=== PATIENT | male | born 1965 | race Caucasian/White ===

== ENCOUNTER 2024-02-23 22:23 | Inpatient (IN) | payer MEDICAID, OTHER ==
[~2024-02-23] VITALS: Ht 185.4 cm; Wt 73.3 kg
[2024-02-23 23:13] LABS: Hematocrit 45.7 % (41.0-53.0); Hemoglobin 13.8 g/dL (13.5-17.5); Mean Corpuscular Hemoglobin 29.3 pg (28.0-32.0); Mean Corpuscular Hgb Conc. 30.2 g/dL (32.0-36.0); Mean Corpuscular Volume 96.9 fL (80.0-100.0); Red Blood Cells 4.72 10^6/uL (4.5-5.90); Red Cell Distribution Width 16.3 % (11.8-14.3)
[2024-02-23 23:21] LABS: Alanine Aminotransferase 33 U/L (7-40); Alkaline Phosphatase 223 U/L (46-116); Anion Gap 21.00001 (5-15); Aspartate Aminotransferase 34 U/L (13-40); BUN/Creatinine Ratio 25.4 (10.0-20.0); Bilirubin, Total < 0.2 mg/dL (0.2-1.0); Blood Urea Nitrogen 44 mg/dL (9-23); Calcium 9.9 mg/dL (8.7-10.4); Chloride 97 mmol/L (98-107); Potassium 3.8 mmol/L (3.5-5.1); Sodium 128 mmol/L (136-145); Total Protein 7.5 g/dL (5.7-8.2)
[2024-02-23 23:22] LABS: White Blood Cell 62.2 10^3/uL (4.4-10.8)
[2024-02-23 23:23] LABS: Basophils % (manual) 0 (0.0-2.0); Blast Cells 0; Eosinophils % (manual) 0 (0-7); Metamyelocytes % 0; Myelocytes % 0; Promyelocytes % 0; Reactive Lymphocytes 0
[2024-02-23 23:26] LABS: Carbon Dioxide < 10 mmol/L (20-30); Glucose 688 mg/dL (74-106); Lactic Acid w/Reflex 2.1 mmol/L (0.4-2.0)
[2024-02-23] MEDS ORDERED: DEXTROSE (50%) 50ML SYRG IV PRN (23:30)
[2024-02-23] MEDS: SODIUM CHLORIDE 0.9% 1,000 ML IV ONE ×2 (23:41)
[2024-02-23] MEDS: CLINDAMYCIN 900MG IV 50 ML IV ONE (23:41)
[2024-02-24] VITALS (13 sets, daily range): BP systolic 96–117; BP diastolic 52–63; PULSE 76–100; RESP 16–29; TEMP 99.3–99.5; O2SAT 98–100
[2024-02-24] MEDS: ACCU-CHEK COMFORT CURVE STRIP VI SCH
[2024-02-24 00:01] LABS: Band Neutrophils % (manual) 17; Lymphocytes % (manual) 6 (10.0-50.0); Monocytes % (manual) 5 (0-12); Platelet Estimate Adequate
[2024-02-24] MEDS: PIPERACILLIN-TAZO 4.5GM 100 ML IV ONE (00:44)
[2024-02-24] MEDS: ACCU-CHEK COMFORT CURVE STRIP VI ONE (00:52)
[2024-02-24] MEDS: INSULIN DRIP 100 UNIT/100ML 100 ML IV SCH (00:59)
[2024-02-24] MEDS: INSULIN LANTUS (GLARGINE) 1 /0.01ml (100units/ml) SC ONE (01:31)
[2024-02-24 04:10] LABS: Amphetamine Screen, Urine Neg (NEGATIVE); Barbiturate Scree,Urine Neg (NEGATIVE); Benzodiazephine Screen, Urine Neg (NEGATIVE); Cannabinoid Screen, Urine Neg (NEGATIVE); Cocaine Screen, Urine Neg (NEGATIVE); Opiate Scree,Urine Neg (NEGATIVE); Phencyclidine Screen, Urine Neg (NEGATIVE)
[2024-02-24] MEDS ORDERED: VANCOMYCIN PER PHARMACY 0 MG IV SCH (04:15)
[2024-02-24] MEDS ORDERED: NITROGLYCERIN 0.4 MG SL TAB SL PRN (04:15)
[2024-02-24] MEDS ORDERED: PAMIDRONATE DISODIUM 90 MG in SOD CHL 0.45% 1,000 ML IV ONE (04:15)
[2024-02-24] MEDS ORDERED: MORPHINE SULFATE INJ 2 MG/ml SYRG IV PRN (04:15)
[2024-02-24 04:22] LABS: Urine Bacteria FEW /hpf (None Seen); Urine Blood 3+ /uL (Negative); Urine Clarity Clear (Clear); Urine Color Light-Yellow (Yellow); Urine Mucus FEW (None Seen); Urine Protein, UAD 1+ (Negative); Urine Urobilinogen Normal (Negative); Urine WBC 2 /hpf (0 - 3)
[2024-02-24] MEDS: VANCOMYCIN 1GM/200ML 200 ML IV ONE ×2 (04:41→05:32)
[2024-02-24 05:42] LABS: Chloride 104 mmol/L (98-107); Potassium 3.1 mmol/L (3.5-5.1); Sodium 137 mmol/L (136-145)
[2024-02-24 05:43] LABS: Anion Gap 23.00001 (5-15); Calcium 9.2 mg/dL (8.7-10.4)
[2024-02-24 05:48] LABS: BUN/Creatinine Ratio 38.9 (10.0-20.0)
[2024-02-24 05:52] LABS: Blood Urea Nitrogen 61 mg/dL (9-23); Glucose 345 mg/dL (74-106)
[2024-02-24 05:53] LABS: Carbon Dioxide < 10 mmol/L (20-30)
[2024-02-24] MEDS: SODIUM BICARB 50mEq/50ml Vial 100 ML in SOD CHL 0.45% 1,000 ML IV ONE (06:17)
[2024-02-24] MEDS: SODIUM BICARB 8.4% 50Meq/50ml SYR Vial IV ONE ×2 (06:19→20:31)
[2024-02-24] MEDS: SODIUM BICARB 50mEq/50ml Vial 100 ML in SOD CHL 0.45% 1,000 ML IV SCH ×2 (07:25→12:19)
[2024-02-24] MEDS: PIPERACILLIN-TAZOB 3.375GM 100 ML IV SCH (07:30)
[2024-02-24 08:37] LABS: Base Excess -13.1 mmol/L (-2.0-2.0)
[2024-02-24] MEDS: INSULIN LANTUS (GLARGINE) 1 /0.01ml (100units/ml) SC SCH (10:00)
[2024-02-24] MEDS: POTASSIUM CHLORIDE 40 MEQ, LIDOCAINE 1% (LOCAL ANESTH.) 4 ML in SODIUM CHL 0.9% 250 ML IV ONE (11:15)
[2024-02-24 11:25] LABS: INR 1.32 (0.9-1.15); Prothrombin Time 13.6 sec (9.3-11.8)
[2024-02-24 11:47] LABS: Anion Gap 14 (5-15); Carbon Dioxide 12 mmol/L (20-30); Chloride 113 mmol/L (98-107); Potassium 2.9 mmol/L (3.5-5.1); Sodium 139 mmol/L (136-145)
[2024-02-24 11:53] LABS: BUN/Creatinine Ratio 34.4 (10.0-20.0)
[2024-02-24 12:03] LABS: Blood Urea Nitrogen 45 mg/dL (9-23); Glucose 178 mg/dL (74-106)
[2024-02-24] MEDS: ONDANSETRON HCL 4 MG/2 ML VIAL IV PRN (12:27)
[2024-02-24] MEDS: MORPHINE SULFATE INJ 2 MG/ml SYRG IV PRN (12:28)
[2024-02-24] MEDS: MEROPENEM 1GM IVPB 50 ML IV SCH (14:29)
[2024-02-24] MEDS: CLINDAMYCIN 600MG IV 50 ML IV SCH (14:29)
[2024-02-24] MEDS: SODIUM BICARB 8.4% 50Meq/50ml SYR INJ ONE (14:50)
[2024-02-24] MEDS: SOD CHL 0.45% 1,000 ML IV SCH (15:15)
[2024-02-24] MEDS ORDERED: MIDAZOLAM DRIP 50 mg/50mL 50 ML IV SCH (15:45)
[2024-02-24] MEDS: LIDOCAINE 1% (LOCAL ANESTH.) PF 5ml SDV ID ONE (16:00)
[2024-02-24] MEDS: ETOMIDATE (2MG/ML) 20ML VIAL IV ONE (16:24)
[2024-02-24] MEDS: ROCURONIUM 10MG/ML 10ML VIAL IV ONE (16:28)
[2024-02-24] MEDS: VANCOMYCIN 1GM/200ML 200 ML IV SCH (17:00)
[2024-02-24] MEDS: MIDAZOLAM DRIP 50 mg/50mL 50 ML IV SCH (17:05)
[2024-02-24 17:12] LABS: Base Excess -10.7 mmol/L (-2.0-2.0)
[2024-02-24] MEDS: VASOPRESSIN 20 UNITS in SODIUM CHL 0.9% 99 ML IV SCH (19:42)
[2024-02-24] MEDS: NOREPINEPHRINE 8 MG/250ML KIT 250 ML IV SCH (19:42)
[2024-02-24] MEDS: fentaNYL Drip 2500mCg/250mlNS 250 ML IV SCH (19:42)
[2024-02-24 20:12] LABS: Chloride 116 mmol/L (98-107); Potassium 3.3 mmol/L (3.5-5.1); Sodium 142 mmol/L (136-145)
[2024-02-24 20:15] LABS: Anion Gap 10 (5-15); Calcium 8.2 mg/dL (8.5-10.1); Carbon Dioxide 16 mmol/L (20-30)
[2024-02-24 20:20] LABS: BUN/Creatinine Ratio 35.2 (10.0-20.0); Blood Urea Nitrogen 44 mg/dL (9-23); Glucose 220 mg/dL (74-106)
[2024-02-24] MEDS ORDERED: DEXTROSE (50%) 50ML SYRG IV PRN (21:15)
[2024-02-24] MEDS: POTASSIUM CHL 20MEQ/100ML 100 ML IV ONE (21:42)
[2024-02-24] MEDS: SOD CHL 0.45% WITH 20MEQ KCL 1,000 ML IV SCH (21:47)
[2024-02-24] MEDS: SODIUM CHLOR 0.9% PF (SALINE LOCK) 10ML VIAL/SYR IV SCH (22:25)
[2024-02-24 22:37] LABS: Base Excess -6.3 mmol/L (-2.0-2.0)
[2024-02-25] VITALS (84 sets, daily range): BP systolic 86–114; BP diastolic 30–69; PULSE 80–101; RESP 16–35; TEMP 98.1–100.6; O2SAT 93–100
[2024-02-25] MEDS: ACCU-CHEK COMFORT CURVE STRIP VI SCH
[2024-02-25] MEDS: InsuLIN REG 1unit/0.01ml Soln (100units/ml) SC SCH (00:03)
[2024-02-25 03:56] LABS: Mean Corpuscular Hgb Conc. 32.9 g/dL (32.0-36.0)
[2024-02-25 03:59] LABS: Hematocrit 35.6 % (41.0-53.0); Hemoglobin 11.7 g/dL (13.5-17.5); Mean Corpuscular Volume 88.3 fL (80.0-100.0); Red Blood Cells 4.03 10^6/uL (4.5-5.90); Red Cell Distribution Width 15.1 % (11.8-14.3)
[2024-02-25 04:10] LABS: INR 1.34 (0.9-1.15); Partial Thromboplastin Time 28.4 SEC (24.5-34.5); Prothrombin Time 13.8 sec (9.3-11.8)
[2024-02-25 04:13] LABS: Basophils % (manual) 0 (0.0-2.0); Blast Cells 0; Eosinophils % (manual) 0 (0-7); Metamyelocytes % 0; Myelocytes % 0; Promyelocytes % 0; Reactive Lymphocytes 0; White Blood Cell 31.4 10^3/uL (4.4-10.8)
[2024-02-25 04:19] LABS: Alanine Aminotransferase 34 U/L (7-40); Albumin 2.4 g/dL (3.2-4.8); Alkaline Phosphatase 163 U/L (46-116); Anion Gap 10 (5-15); Aspartate Aminotransferase 39 U/L (13-40); BUN/Creatinine Ratio 37.6 (10.0-20.0); Bilirubin, Total 0.2 mg/dL (0.2-1.0); Blood Urea Nitrogen 47 mg/dL (9-23); Calcium 8.5 mg/dL (8.7-10.4); Carbon Dioxide 18 mmol/L (20-30); Chloride 113 mmol/L (98-107); Glucose 263 mg/dL (74-106); Potassium 3.3 mmol/L (3.5-5.1); Sodium 141 mmol/L (136-145); Total Protein 6.2 g/dL (5.7-8.2)
[2024-02-25 04:47] LABS: Band Neutrophils % (manual) 21; Lymphocytes % (manual) 4 (10.0-50.0); Monocytes % (manual) 2 (0-12)
[2024-02-25 04:48] LABS: Platelet Estimate Adequate
[2024-02-25] MEDS: POTASSIUM EFFERVESENT TAB 25 MEQ GT ONE (05:33)
[2024-02-25] MEDS: LIDOCAINE W/ EPINEPHRINE 1% 20ML VIAL ONE (06:54)
[2024-02-25] MEDS: BUPIVACAINE 0.25% INJ 50ML VIAL ONE (06:55)
[2024-02-25] MEDS: POVIDONE IODINE 10 % TOPICAL OINT 30GM TOP ONE (06:58)
[2024-02-25] MEDS ORDERED: HYDROmorphone HCL 2 MG/ML VL/or syr ONE (07:19)
[2024-02-25] MEDS ORDERED: KETAMINE 50mg/ML 1ml syringe ONE ×2 (07:19→08:46)
[2024-02-25] MEDS ORDERED: PHENYLEPHRINE HCL 10 MG/ML VL ONE (07:19)
[2024-02-25 07:35] LABS: Base Excess -8.9 mmol/L (-2.0-2.0)
[2024-02-25 11:39] LABS: Basophils # (auto) 0 10 ^3/uL (0-0.2); Basophils % (auto) 0.2 % (0.0-2.0); Eosinophils # (auto) 0 10 ^3/uL (0-0.8); Hemoglobin 10.2 g/dL (13.5-17.5); Lymphocytes % (auto) 4.2 % (10.0-50.0); Mean Corpuscular Hemoglobin 28.6 pg (28.0-32.0); Mean Corpuscular Hgb Conc. 31.9 g/dL (32.0-36.0); Mean Corpuscular Volume 89.6 fL (80.0-100.0); Monocytes # (auto) 0.8 10 ^3/uL (0-1.3); Monocytes % (auto) 3.2 % (0.0-12.0); Neutrophils # (auto) 22.5 10 ^3/uL (1.6-8.6); Neutrophils % (auto) 92.4 % (37.0-80.0); Nucleated Red Blood Cells % 0.1 %; Red Blood Cells 3.58 10^6/uL (4.5-5.90); Red Cell Distribution Width 14.6 % (11.8-14.3); White Blood Cell 24.4 10^3/uL (4.4-10.8)
[2024-02-25 11:42] LABS: Chloride 116 mmol/L (98-107); Potassium 3.6 mmol/L (3.5-5.1); Sodium 142 mmol/L (136-145)
[2024-02-25 11:43] LABS: Anion Gap 9 (5-15); Carbon Dioxide 17 mmol/L (20-30)
[2024-02-25 11:44] LABS: Calcium 7.8 mg/dL (8.7-10.4)
[2024-02-25 11:48] LABS: BUN/Creatinine Ratio 34.5 (10.0-20.0); Blood Urea Nitrogen 39 mg/dL (9-23); Glucose 284 mg/dL (74-106)
[2024-02-25 11:49] LABS: Magnesium 2.3 mg/dL (1.6-2.6)
[2024-02-25 11:51] LABS: Phosphorus 2.7 mg/dL (2.4-5.1)
[2024-02-25] MEDS: MIDAZOLAM DRIP 50 mg/50mL 50 ML IV SCH (13:20)
[2024-02-25] MEDS: VANCOMYCIN 1GM/200ML 200 ML IV SCH (20:50)
[2024-02-25 21:17] LABS: Triglycerides 96 mg/dL (< 150)
[2024-02-25 21:18] LABS: LDL Cholesterol 28 mg/dL (< 100)
[2024-02-25 21:19] LABS: Cholesterol 56 mg/dL (< 200); HDL Cholesterol 10 mg/dL (40-59)
[2024-02-25] MEDS: INSULIN LANTUS (GLARGINE) 1 /0.01ml (100units/ml) SC SCH (22:18)
[2024-02-25] MEDS: ATORVASTATIN 20 MG TAB PO SCH (22:19)
[2024-02-26] VITALS (106 sets, daily range): BP systolic 83–141; BP diastolic 44–78; PULSE 59–82; RESP 20–25; TEMP 96.8–100.6; O2SAT 98–100
[2024-02-26 03:41] LABS: Anion Gap 9 (5-15); Carbon Dioxide 19 mmol/L (20-30); Chloride 119 mmol/L (98-107); Potassium 3.4 mmol/L (3.5-5.1)
[2024-02-26 03:42] LABS: Calcium 8.1 mg/dL (8.7-10.4)
[2024-02-26 03:47] LABS: BUN/Creatinine Ratio 28.6 (10.0-20.0); Blood Urea Nitrogen 30 mg/dL (9-23); Glucose 219 mg/dL (74-106)
[2024-02-26 03:54] LABS: Sodium 147 mmol/L (136-145)
[2024-02-26 07:41] LABS: Base Excess -4.6 mmol/L (-2.0-2.0)
[2024-02-26] MEDS: PANTOPRAZOLE 40 MG/10 ML VIAL INJ IV SCH (08:16)
[2024-02-26] MEDS: ASPirin 81 mg TAB PO SCH (08:16)
[2024-02-26 08:30] LABS: Hematocrit 41.5 % (41.0-53.0); Hemoglobin 12.5 g/dL (13.5-17.5); Mean Corpuscular Hemoglobin 28.6 pg (28.0-32.0); Mean Corpuscular Hgb Conc. 30.2 g/dL (32.0-36.0); Mean Corpuscular Volume 94.7 fL (80.0-100.0); Red Blood Cells 4.38 10^6/uL (4.5-5.90); Red Cell Distribution Width 16.5 % (11.8-14.3); White Blood Cell 24.6 10^3/uL (4.4-10.8)
[2024-02-26 08:32] LABS: Basophils % (manual) 0 (0.0-2.0); Blast Cells 0; Eosinophils % (manual) 0 (0-7); Metamyelocytes % 0; Myelocytes % 0; Promyelocytes % 0; Reactive Lymphocytes 0
[2024-02-26 08:55] LABS: Platelet Estimate Adequate
[2024-02-26 08:59] LABS: Band Neutrophils % (manual) 9; Lymphocytes % (manual) 9 (10.0-50.0); Monocytes % (manual) 15 (0-12)
[2024-02-26] MEDS: POTASSIUM CHL 20MEQ/100ML 100 ML IV SCH (10:15)
[2024-02-26] MEDS: MAGNESIUM SULFATE 1GM/100ML 100 ML IV ONE (11:30)
[2024-02-26] MEDS: FREE WATER GT SCH (11:31)
[2024-02-26] MEDS: CATHFLO ACTIVASE (ALTEPLASE) 2 MG VIAL IV ONE (17:59)
[2024-02-26] MEDS: INSULIN LANTUS (GLARGINE) 1 /0.01ml (100units/ml) SC SCH (22:19)
[2024-02-27] VITALS (110 sets, daily range): BP systolic 63–137; BP diastolic 50–77; PULSE 57–70; RESP 14–26; TEMP 97.9–99.5; O2SAT 99–100
[2024-02-27 04:10] LABS: Hematocrit 31.4 % (41.0-53.0); Hemoglobin 10.2 g/dL (13.5-17.5); Mean Corpuscular Hemoglobin 28.9 pg (28.0-32.0); Mean Corpuscular Hgb Conc. 32.4 g/dL (32.0-36.0); Mean Corpuscular Volume 89.1 fL (80.0-100.0); Red Blood Cells 3.53 10^6/uL (4.5-5.90); Red Cell Distribution Width 15.3 % (11.8-14.3); White Blood Cell 11.9 10^3/uL (4.4-10.8)
[2024-02-27 04:13] LABS: Basophils % (manual) 0 (0.0-2.0); Blast Cells 0; Eosinophils % (manual) 0 (0-7); Metamyelocytes % 0; Myelocytes % 0; Promyelocytes % 0; Reactive Lymphocytes 0
[2024-02-27 04:19] LABS: Calcium 7.8 mg/dL (8.7-10.4); Chloride 119 mmol/L (98-107); Potassium 4.3 mmol/L (3.5-5.1); Sodium 146 mmol/L (136-145)
[2024-02-27 04:20] LABS: Anion Gap 5 (5-15); Carbon Dioxide 22 mmol/L (20-30)
[2024-02-27 04:25] LABS: BUN/Creatinine Ratio 23.2 (10.0-20.0); Blood Urea Nitrogen 22 mg/dL (9-23); Glucose 163 mg/dL (74-106)
[2024-02-27 04:26] LABS: Magnesium 2.6 mg/dL (1.6-2.6)
[2024-02-27 04:42] LABS: Band Neutrophils % (manual) 11; Lymphocytes % (manual) 19 (10.0-50.0); Monocytes % (manual) 3 (0-12); Platelet Estimate Adequate
[2024-02-27 08:27] LABS: Base Excess -4.4 mmol/L (-2.0-2.0)
[2024-02-27] MEDS: SOD CHL 0.45% 1,000 ML IV SCH (17:18)
[2024-02-28] VITALS (108 sets, daily range): BP systolic 88–170; BP diastolic 57–94; PULSE 57–92; RESP 6–33; TEMP 91.6–97.9; O2SAT 97–100
[2024-02-28 03:54] LABS: Hematocrit 24.7 % (41.0-53.0); Mean Corpuscular Hemoglobin 29.4 pg (28.0-32.0)
[2024-02-28 03:56] LABS: Mean Corpuscular Hgb Conc. 32.5 g/dL (32.0-36.0); Mean Corpuscular Volume 90.6 fL (80.0-100.0); Red Blood Cells 2.73 10^6/uL (4.5-5.90); Red Cell Distribution Width 15.4 % (11.8-14.3)
[2024-02-28 03:57] LABS: Albumin 1.7 g/dL (3.2-4.8); Alkaline Phosphatase 90 U/L (46-116); Anion Gap 7 (5-15); Aspartate Aminotransferase 23 U/L (13-40); BUN/Creatinine Ratio 31.3 (10.0-20.0); Blood Urea Nitrogen 20 mg/dL (9-23); Carbon Dioxide 16 mmol/L (20-30); Chloride 110 mmol/L (98-107); Glucose 134 mg/dL (74-106); Magnesium 1.8 mg/dL (1.6-2.6); Potassium 2.9 mmol/L (3.5-5.1)
[2024-02-28 03:58] LABS: Bilirubin, Total 0.3 mg/dL (0.2-1.0); Total Protein 4.8 g/dL (5.7-8.2)
[2024-02-28 04:07] LABS: Sodium 133 mmol/L (136-145)
[2024-02-28 04:14] LABS: Basophils % (manual) 0 (0.0-2.0); Blast Cells 0; Eosinophils % (manual) 0 (0-7); Metamyelocytes % 0; Myelocytes % 0; Promyelocytes % 0; Reactive Lymphocytes 0
[2024-02-28] MEDS: CALCIUM GLUC 1,000mg/50ml-NS 50 ML IV SCH (04:15)
[2024-02-28] MEDS ORDERED: POTASSIUM CHL 20MEQ/100ML 100 ML IV SCH (04:15)
[2024-02-28] MEDS: ALBUMIN 5% 50 ML IV ONE (04:15)
[2024-02-28 04:22] LABS: Alanine Aminotransferase 15 U/L (7-40)
[2024-02-28 06:43] LABS: Hematocrit 29.2 % (41.0-53.0); Hemoglobin 9.6 g/dL (13.5-17.5); Mean Corpuscular Hemoglobin 28.7 pg (28.0-32.0); Mean Corpuscular Hgb Conc. 32.9 g/dL (32.0-36.0); Mean Corpuscular Volume 87.4 fL (80.0-100.0); Red Blood Cells 3.34 10^6/uL (4.5-5.90); Red Cell Distribution Width 15.3 % (11.8-14.3); White Blood Cell 6.6 10^3/uL (4.4-10.8)
[2024-02-28 06:49] LABS: Alanine Aminotransferase 18 U/L (7-40); Alkaline Phosphatase 108 U/L (46-116); Anion Gap 6 (5-15); Aspartate Aminotransferase 27 U/L (13-40); BUN/Creatinine Ratio 30.4 (10.0-20.0); Bilirubin, Total 0.4 mg/dL (0.2-1.0); Blood Urea Nitrogen 24 mg/dL (9-23); Calcium 7.3 mg/dL (8.7-10.4); Carbon Dioxide 20 mmol/L (20-30); Chloride 116 mmol/L (98-107); Glucose 119 mg/dL (74-106); Potassium 3.5 mmol/L (3.5-5.1); Sodium 142 mmol/L (136-145); Total Protein 5.9 g/dL (5.7-8.2)
[2024-02-28 07:06] LABS: Basophils % (manual) 0 (0.0-2.0); Blast Cells 0; Eosinophils % (manual) 0 (0-7); Metamyelocytes % 0; Myelocytes % 0; Promyelocytes % 0; Reactive Lymphocytes 0
[2024-02-28 07:17] LABS: Band Neutrophils % (manual) 10; Lymphocytes % (manual) 14 (10.0-50.0); Monocytes % (manual) 3 (0-12)
[2024-02-28 07:18] LABS: Platelet Estimate Decreased
[2024-02-28 08:16] LABS: Band Neutrophils % (manual) 7; Lymphocytes % (manual) 17 (10.0-50.0); Monocytes % (manual) 5 (0-12)
[2024-02-28 08:17] LABS: Platelet Estimate Decreased
[2024-02-28 08:18] LABS: Base Excess -4.9 mmol/L (-2.0-2.0)
[2024-02-28] MEDS: D5W/SOD CHL 0.45% 1,000 ML IV SCH (16:07)
[2024-02-28] MEDS: NYSTATIN TOPICAL POWDER 15GM TOP ONE (18:00)
[2024-02-28] MEDS: VANCOMYCIN 1GM/200ML 200 ML IV SCH (19:21)
[2024-02-29] VITALS (105 sets, daily range): BP systolic 82–156; BP diastolic 49–101; PULSE 55–87; RESP 12–32; TEMP 85.6–97.5; O2SAT 87–100
[2024-02-29 04:09] LABS: Basophils # (auto) 0 10 ^3/uL (0-0.2); Basophils % (auto) 0.1 % (0.0-2.0); Eosinophils # (auto) 0 10 ^3/uL (0-0.8); Eosinophils % (auto) 0.6 % (0.0-7.0); Hematocrit 31.8 % (41.0-53.0); Hemoglobin 10.4 g/dL (13.5-17.5); Lymphocytes # (auto) 1.1 10 ^3/uL (0.4-5.4); Lymphocytes % (auto) 14.5 % (10.0-50.0); Mean Corpuscular Hemoglobin 29.4 pg (28.0-32.0); Mean Corpuscular Hgb Conc. 32.7 g/dL (32.0-36.0); Mean Corpuscular Volume 90.1 fL (80.0-100.0); Monocytes # (auto) 0.6 10 ^3/uL (0-1.3); Monocytes % (auto) 7.9 % (0.0-12.0); Neutrophils # (auto) 5.6 10 ^3/uL (1.6-8.6); Neutrophils % (auto) 76.9 % (37.0-80.0); Nucleated Red Blood Cells % 0.2 %; Red Blood Cells 3.53 10^6/uL (4.5-5.90); Red Cell Distribution Width 15.3 % (11.8-14.3); White Blood Cell 7.3 10^3/uL (4.4-10.8)
[2024-02-29 04:29] LABS: Alanine Aminotransferase 18 U/L (7-40); Albumin 2.1 g/dL (3.2-4.8); Alkaline Phosphatase 108 U/L (46-116); Anion Gap 8 (5-15); Aspartate Aminotransferase 28 U/L (13-40); Bilirubin, Total 0.4 mg/dL (0.2-1.0); Blood Urea Nitrogen 20 mg/dL (9-23); Calcium 7.3 mg/dL (8.7-10.4); Carbon Dioxide 21 mmol/L (20-30); Chloride 112 mmol/L (98-107); Glucose 155 mg/dL (74-106); Potassium 3.2 mmol/L (3.5-5.1); Sodium 141 mmol/L (136-145); Total Protein 6.1 g/dL (5.7-8.2)
[2024-02-29] MEDS: POTASSIUM CHL 20MEQ/100ML 100 ML IV ONE (04:45)
[2024-02-29 07:24] LABS: Base Excess -1.3 mmol/L (-2.0-2.0)
[2024-02-29] MEDS: MEROPENEM 1GM IVPB 50 ML IV SCH (07:48)
[2024-02-29] MEDS ORDERED: DEXTROSE (50%) 50ML SYRG IV PRN (10:00)
[2024-02-29] MEDS: POTASSIUM EFFERVESENT TAB 25 MEQ GT SCH (10:52)
[2024-02-29] MEDS: InsuLIN REG 1unit/0.01ml Soln (100units/ml) SC SCH (12:00)
[2024-02-29] MEDS: ACCU-CHEK COMFORT CURVE STRIP VI SCH (12:01)
[2024-02-29] MEDS: Glucerna 1.2 Cal 1Liter BOTTLE GT SCH (14:37)
[2024-03-01] VITALS (101 sets, daily range): BP systolic 85–174; BP diastolic 50–119; PULSE 56–108; RESP 11–44; TEMP 93.9–98.4; O2SAT 96–100
[2024-03-01 04:01] LABS: Basophils # (auto) 0 10 ^3/uL (0-0.2); Basophils % (auto) 0.3 % (0.0-2.0); Eosinophils # (auto) 0 10 ^3/uL (0-0.8); Eosinophils % (auto) 0.3 % (0.0-7.0); Hematocrit 31.1 % (41.0-53.0); Hemoglobin 10.4 g/dL (13.5-17.5); Lymphocytes # (auto) 0.8 10 ^3/uL (0.4-5.4); Lymphocytes % (auto) 9.8 % (10.0-50.0); Mean Corpuscular Hemoglobin 29.7 pg (28.0-32.0); Mean Corpuscular Hgb Conc. 33.4 g/dL (32.0-36.0); Mean Corpuscular Volume 88.9 fL (80.0-100.0); Monocytes # (auto) 0.6 10 ^3/uL (0-1.3); Monocytes % (auto) 7.6 % (0.0-12.0); Neutrophils # (auto) 6.5 10 ^3/uL (1.6-8.6); Nucleated Red Blood Cells % 0.1 %; Red Cell Distribution Width 15.3 % (11.8-14.3)
[2024-03-01 04:07] LABS: Chloride 110 mmol/L (98-107); Potassium 3.5 mmol/L (3.5-5.1); Sodium 138 mmol/L (136-145)
[2024-03-01 04:08] LABS: Anion Gap 5 (5-15); Carbon Dioxide 23 mmol/L (20-30)
[2024-03-01 04:09] LABS: Calcium 7.5 mg/dL (8.7-10.4)
[2024-03-01 04:13] LABS: Blood Urea Nitrogen 18 mg/dL (9-23); Glucose 201 mg/dL (74-106)
[2024-03-01 08:47] LABS: Base Excess -2.4 mmol/L (-2.0-2.0)
[2024-03-01] MEDS: FUROSEMIDE 40 MG/4 ML VIAL IV ONE (09:38)
[2024-03-01] MEDS: Glucerna 1.2 Cal 1Liter BOTTLE GT SCH (10:09)
[2024-03-01] MEDS: cefTRIAXone 2GM/50ML D5W 50 ML IV SCH (10:23)
[2024-03-02] VITALS (107 sets, daily range): BP systolic 76–176; BP diastolic 44–95; PULSE 68–105; RESP 11–46; TEMP 85.3–98.2; O2SAT 83–100
[2024-03-02 04:17] LABS: Anion Gap 4 (5-15); Carbon Dioxide 28 mmol/L (20-30); Chloride 107 mmol/L (98-107); Potassium 3.2 mmol/L (3.5-5.1); Sodium 139 mmol/L (136-145)
[2024-03-02 04:18] LABS: Calcium 7.6 mg/dL (8.7-10.4)
[2024-03-02 04:23] LABS: BUN/Creatinine Ratio 23.5 (10.0-20.0); Blood Urea Nitrogen 16 mg/dL (9-23); Glucose 134 mg/dL (74-106)
[2024-03-02 07:49] LABS: Base Excess 2.2 mmol/L (-2.0-2.0)
[2024-03-02] MEDS: LACTULOSE 20Gm/30ML SOLN GT SCH (10:00)
[2024-03-02] MEDS: FUROSEMIDE 40 MG/4 ML VIAL IV SCH (10:32)
[2024-03-02] MEDS: HALOPERIDOL 5 MG TAB PO ONE (10:39)
[2024-03-02 12:12] LABS: Base Excess 5.3 mmol/L (-2.0-2.0)
[2024-03-02] MEDS: diphenhdrAMINE-ZINC ACETATE 1 APPLIC APPL TOP PRN (12:51)
[2024-03-02] MEDS: IPRATROPIUM BROM 0.5 MG/2.5ML INH SOL NEB ONE (13:23)
[2024-03-02] MEDS: ALBUTEROL SULF 2.5 MG/0.5ML(0.5%) NEB SOLN NEB ONE (13:23)
[2024-03-02] MEDS: METOCLOPRAMIDE HCL 5MG/ml INJ 2ml VIAL IV SCH (15:20)
[2024-03-02] MEDS: LORazepam 2MG/ML-1ML VIAL ONE (16:46)
[2024-03-02] MEDS: LORazepam 2MG/ML-1ML VIAL IV ONE (16:47)
[2024-03-02 17:18] LABS: Base Excess 7.4 mmol/L (-2.0-2.0)
[2024-03-02] MEDS: ETOMIDATE (2MG/ML) 20ML VIAL IV ONE ×2 (17:30→20:11)
[2024-03-02] MEDS: ROCURONIUM 10MG/ML 10ML VIAL IV ONE ×2 (17:30→20:11)
[2024-03-02] MEDS: ALBUTEROL SULF 2.5 MG/0.5ML(0.5%) NEB SOLN NEB SCH (17:53)
[2024-03-02] MEDS: IPRATROPIUM BROM 0.5 MG/2.5ML INH SOL NEB SCH (17:53)
[2024-03-02] MEDS ORDERED: IPRATROPIUM BROM 0.5 MG/2.5ML INH SOL NEB SCH (18:00)
[2024-03-02] MEDS ORDERED: ALBUTEROL SULF 2.5 MG/0.5ML(0.5%) NEB SOLN NEB SCH (18:00)
[2024-03-02 20:10] LABS: Base Excess 5.1 mmol/L (-2.0-2.0)
[2024-03-03] VITALS (109 sets, daily range): BP systolic 83–153; BP diastolic 45–81; PULSE 65–92; RESP 10–23; TEMP 96.1–99.3; O2SAT 95–100
[2024-03-03 03:55] LABS: Basophils # (auto) 0 10 ^3/uL (0-0.2); Basophils % (auto) 0.3 % (0.0-2.0); Eosinophils # (auto) 0 10 ^3/uL (0-0.8); Eosinophils % (auto) 0.6 % (0.0-7.0); Hematocrit 26.2 % (41.0-53.0); Hemoglobin 8.8 g/dL (13.5-17.5); Lymphocytes # (auto) 1.4 10 ^3/uL (0.4-5.4); Lymphocytes % (auto) 17.2 % (10.0-50.0); Mean Corpuscular Hemoglobin 29.4 pg (28.0-32.0); Mean Corpuscular Hgb Conc. 33.6 g/dL (32.0-36.0); Mean Corpuscular Volume 87.7 fL (80.0-100.0); Monocytes # (auto) 0.5 10 ^3/uL (0-1.3); Monocytes % (auto) 6.2 % (0.0-12.0); Neutrophils # (auto) 6.3 10 ^3/uL (1.6-8.6); Neutrophils % (auto) 75.7 % (37.0-80.0); Nucleated Red Blood Cells % 0.1 %; Red Blood Cells 2.99 10^6/uL (4.5-5.90); Red Cell Distribution Width 14.8 % (11.8-14.3); White Blood Cell 8.3 10^3/uL (4.4-10.8)
[2024-03-03 04:06] LABS: Anion Gap 3 (5-15); Carbon Dioxide 31 mmol/L (20-30); Chloride 105 mmol/L (98-107); Potassium 2.9 mmol/L (3.5-5.1); Sodium 139 mmol/L (136-145)
[2024-03-03 04:07] LABS: Calcium 7.4 mg/dL (8.7-10.4)
[2024-03-03 04:12] LABS: BUN/Creatinine Ratio 26.2 (10.0-20.0); Blood Urea Nitrogen 17 mg/dL (9-23); Glucose 103 mg/dL (74-106)
[2024-03-03] MEDS: POTASSIUM CHL 20MEQ/100ML 100 ML IV ONE ×2 (05:30→07:33)
[2024-03-03] MEDS: levoFLOXacin 750MG 150 ML IV SCH (11:03)
[2024-03-03] MEDS: POTASSIUM CHL 20MEQ/100ML 100 ML IV SCH (11:45)
[2024-03-04] VITALS (137 sets, daily range): BP systolic 87–158; BP diastolic 43–88; PULSE 62–86; RESP 14–21; TEMP 97.3–99.3; O2SAT 92–100
[2024-03-04 04:35] LABS: Chloride 104 mmol/L (98-107); Potassium 3.9 mmol/L (3.5-5.1); Sodium 135 mmol/L (136-145)
[2024-03-04 04:36] LABS: Anion Gap 2 (5-15); Carbon Dioxide 29 mmol/L (20-30)
[2024-03-04 04:37] LABS: Calcium 7.4 mg/dL (8.7-10.4)
[2024-03-04 04:42] LABS: BUN/Creatinine Ratio 23.4 (10.0-20.0); Blood Urea Nitrogen 15 mg/dL (9-23); Glucose 212 mg/dL (74-106)
[2024-03-04 06:58] LABS: Base Excess 3.8 mmol/L (-2.0-2.0)
[2024-03-04] MEDS: DOCUSATE ORAL LIQUID 100 MG/10 ML UD GT SCH (10:11)
[2024-03-04] MEDS: methylPREDNISolone SOD SUCC 125 MG/2 ML VL IV ONE (10:11)
[2024-03-05] VITALS (105 sets, daily range): BP systolic 85–148; BP diastolic 48–87; PULSE 63–112; RESP 14–30; TEMP 97.7–99.7; O2SAT 88–100
[2024-03-05 04:09] LABS: Anion Gap 5 (5-15); Calcium 8.6 mg/dL (8.7-10.4); Carbon Dioxide 32 mmol/L (20-30); Chloride 100 mmol/L (98-107); Potassium 4.9 mmol/L (3.5-5.1); Sodium 137 mmol/L (136-145)
[2024-03-05 04:15] LABS: BUN/Creatinine Ratio 27.2 (10.0-20.0); Glucose 248 mg/dL (74-106)
[2024-03-05 04:16] LABS: Magnesium 2.4 mg/dL (1.6-2.6)
[2024-03-05 04:22] LABS: Blood Urea Nitrogen 25 mg/dL (9-23)
[2024-03-05 08:16] LABS: Basophils # (auto) 0 10 ^3/uL (0-0.2); Basophils % (auto) 0.1 % (0.0-2.0); Eosinophils # (auto) 0 10 ^3/uL (0-0.8); Lymphocytes # (auto) 0.7 10 ^3/uL (0.4-5.4); Lymphocytes % (auto) 7.1 % (10.0-50.0); Mean Corpuscular Hemoglobin 28.5 pg (28.0-32.0); Mean Corpuscular Hgb Conc. 32.7 g/dL (32.0-36.0); Mean Corpuscular Volume 87.1 fL (80.0-100.0); Monocytes # (auto) 0.3 10 ^3/uL (0-1.3); Monocytes % (auto) 3.7 % (0.0-12.0); Neutrophils # (auto) 8.2 10 ^3/uL (1.6-8.6); Neutrophils % (auto) 89.1 % (37.0-80.0); Red Cell Distribution Width 14.7 % (11.8-14.3)
[2024-03-05 08:19] LABS: Hematocrit 30.3 % (41.0-53.0); Hemoglobin 9.9 g/dL (13.5-17.5); Red Blood Cells 3.47 10^6/uL (4.5-5.90); White Blood Cell 10.1 10^3/uL (4.4-10.8)
[2024-03-05] MEDS: FLUCONAZOLE 200MG/100ML 100 ML IV SCH (10:50)
[2024-03-05 12:28] LABS: Base Excess 5.9 mmol/L (-2.0-2.0)
[2024-03-05] MEDS: INSULIN LANTUS (GLARGINE) 1 /0.01ml (100units/ml) SC SCH (21:59)
[2024-03-06] VITALS (108 sets, daily range): BP systolic 82–124; BP diastolic 50–73; PULSE 74–102; RESP 13–31; TEMP 98.4–100.4; O2SAT 94–100
[2024-03-06 04:09] LABS: INR 4.52 (0.9-1.15)
[2024-03-06 07:48] LABS: Base Excess 8.5 mmol/L (-2.0-2.0)
[2024-03-06 09:25] LABS: Alanine Aminotransferase 10 U/L (7-40); Albumin 2.7 g/dL (3.2-4.8); Alkaline Phosphatase 88 U/L (46-116); Anion Gap 6 (5-15); Aspartate Aminotransferase 15 U/L (13-40); BUN/Creatinine Ratio 33.3 (10.0-20.0); Blood Urea Nitrogen 32 mg/dL (9-23); Calcium 8.3 mg/dL (8.5-10.1); Carbon Dioxide 32 mmol/L (20-30); Chloride 101 mmol/L (98-107); Glucose 151 mg/dL (74-106); Potassium 4.2 mmol/L (3.5-5.1); Sodium 139 mmol/L (136-145)
[2024-03-06 09:26] LABS: Bilirubin, Total 0.3 mg/dL (0.2-1.0); Total Protein 6.2 g/dL (5.7-8.2)
[2024-03-06] MEDS: phytonadione 10 MG in SODIUM CHL 0.9% 50 ML IV ONE (11:13)
[2024-03-06] MEDS ORDERED: ACETAMINOPHEN 650 mg PER 20.3 mL UD GT PRN (13:00)
[2024-03-06 20:40] LABS: INR 1.17 (0.9-1.15); Partial Thromboplastin Time 28.2 SEC (24.5-34.5); Prothrombin Time 12.2 sec (9.3-11.8)
[2024-03-07] VITALS (112 sets, daily range): BP systolic 87–135; BP diastolic 53–83; PULSE 67–95; RESP 14–32; TEMP 98.8–99.5; O2SAT 94–100
[2024-03-07 04:10] LABS: Alanine Aminotransferase 10 U/L (7-40); Albumin 2.7 g/dL (3.2-4.8); Alkaline Phosphatase 88 U/L (46-116); Anion Gap 3 (5-15); Aspartate Aminotransferase 12 U/L (13-40); BUN/Creatinine Ratio 31.4 (10.0-20.0); Bilirubin, Total 0.5 mg/dL (0.2-1.0); Blood Urea Nitrogen 27 mg/dL (9-23); Calcium 8.6 mg/dL (8.7-10.4); Carbon Dioxide 33 mmol/L (20-30); Chloride 100 mmol/L (98-107); Glucose 181 mg/dL (74-106); Potassium 4.1 mmol/L (3.5-5.1); Sodium 136 mmol/L (136-145); Total Protein 6.7 g/dL (5.7-8.2)
[2024-03-07 04:19] LABS: INR 1.14 (0.9-1.15); Partial Thromboplastin Time 29.2 SEC (24.5-34.5); Prothrombin Time 11.9 sec (9.3-11.8)
[2024-03-07 07:54] LABS: Base Excess 6.9 mmol/L (-2.0-2.0)
[2024-03-07 11:42] LABS: INR 1.18 (0.9-1.15); Partial Thromboplastin Time 28.8 SEC (24.5-34.5); Prothrombin Time 12.3 sec (9.3-11.8)
[2024-03-08] VITALS (105 sets, daily range): BP systolic 91–151; BP diastolic 54–86; PULSE 74–96; RESP 10–33; TEMP 98.4–100; O2SAT 98–100
[2024-03-08 04:35] LABS: Anion Gap 3 (5-15); Carbon Dioxide 32 mmol/L (20-30); Chloride 99 mmol/L (98-107); Potassium 3.7 mmol/L (3.5-5.1); Sodium 134 mmol/L (136-145)
[2024-03-08 04:36] LABS: Calcium 8.8 mg/dL (8.7-10.4)
[2024-03-08 04:41] LABS: BUN/Creatinine Ratio 28.6 (10.0-20.0); Blood Urea Nitrogen 24 mg/dL (9-23); Glucose 192 mg/dL (74-106)
[2024-03-08 07:16] LABS: Base Excess 4.3 mmol/L (-2.0-2.0)
[2024-03-08] MEDS ORDERED: ACETAMINOPHEN 650 MG RECT SUPP PR PRN (12:45)
[2024-03-09] VITALS (107 sets, daily range): BP systolic 90–135; BP diastolic 64–87; PULSE 76–93; RESP 9–39; TEMP 98.6–100; O2SAT 97–100
[2024-03-09 07:31] LABS: Base Excess 3.6 mmol/L (-2.0-2.0)
[2024-03-09 11:06] LABS: Chloride 99 mmol/L (98-107); Potassium 3.6 mmol/L (3.5-5.1); Sodium 132 mmol/L (136-145)
[2024-03-09 11:07] LABS: Anion Gap 6 (5-15); Calcium 8.7 mg/dL (8.5-10.1); Carbon Dioxide 27 mmol/L (20-30)
[2024-03-09 11:12] LABS: BUN/Creatinine Ratio 22.7 (10.0-20.0); Blood Urea Nitrogen 22 mg/dL (9-23); Glucose 206 mg/dL (74-106)
[2024-03-09 12:34] LABS: Hemoglobin 9.9 g/dL (13.5-17.5)
[2024-03-09 12:37] LABS: Hematocrit 29.5 % (41.0-53.0); Mean Corpuscular Hemoglobin 28.9 pg (28.0-32.0); Mean Corpuscular Hgb Conc. 33.5 g/dL (32.0-36.0); Mean Corpuscular Volume 86.3 fL (80.0-100.0); Red Blood Cells 3.42 10^6/uL (4.5-5.90); Red Cell Distribution Width 14.8 % (11.8-14.3); White Blood Cell 10.2 10^3/uL (4.4-10.8)
[2024-03-09 12:42] LABS: Band Neutrophils % (manual) 0; Basophils % (manual) 0 (0.0-2.0); Blast Cells 0; Eosinophils % (manual) 0 (0-7); Myelocytes % 0; Promyelocytes % 0; Reactive Lymphocytes 0
[2024-03-09 13:01] LABS: Lymphocytes % (manual) 26 (10.0-50.0); Metamyelocytes % 1; Monocytes % (manual) 2 (0-12)
[2024-03-09 14:06] LABS: Platelet Estimate Adequate
[2024-03-09] MEDS: IPRATROPIUM BROM 0.5 MG/2.5ML INH SOL NEB PRN (19:48)
[2024-03-09] MEDS: ALBUTEROL SULF 2.5 MG/0.5ML(0.5%) NEB SOLN HHN SCH (19:49)
[2024-03-10] VITALS (109 sets, daily range): BP systolic 106–136; BP diastolic 72–89; PULSE 74–113; RESP 10–28; TEMP 97.2–100; O2SAT 90–100
[2024-03-10] MEDS: IPRATROPIUM BROM 0.5 MG/2.5ML INH SOL NEB SCH (06:21)
[2024-03-10 08:29] LABS: Basophils # (auto) 0 10 ^3/uL (0-0.2); Basophils % (auto) 0.6 % (0.0-2.0); Eosinophils # (auto) 0 10 ^3/uL (0-0.8); Eosinophils % (auto) 0.4 % (0.0-7.0); Hematocrit 31.4 % (41.0-53.0); Hemoglobin 10.2 g/dL (13.5-17.5); Lymphocytes # (auto) 1.1 10 ^3/uL (0.4-5.4); Lymphocytes % (auto) 18.4 % (10.0-50.0); Mean Corpuscular Hemoglobin 28.1 pg (28.0-32.0); Mean Corpuscular Hgb Conc. 32.6 g/dL (32.0-36.0); Mean Corpuscular Volume 86.2 fL (80.0-100.0); Monocytes # (auto) 0.7 10 ^3/uL (0-1.3); Monocytes % (auto) 12.2 % (0.0-12.0); Neutrophils # (auto) 4.2 10 ^3/uL (1.6-8.6); Neutrophils % (auto) 68.4 % (37.0-80.0); Nucleated Red Blood Cells % 0.1 %; Red Blood Cells 3.64 10^6/uL (4.5-5.90); Red Cell Distribution Width 14.6 % (11.8-14.3); White Blood Cell 6.1 10^3/uL (4.4-10.8)
[2024-03-10 08:39] LABS: Chloride 101 mmol/L (98-107); Potassium 3.3 mmol/L (3.5-5.1); Sodium 136 mmol/L (136-145)
[2024-03-10 08:40] LABS: Anion Gap 8 (5-15); Calcium 8.7 mg/dL (8.5-10.1); Carbon Dioxide 27 mmol/L (20-30)
[2024-03-10 08:45] LABS: BUN/Creatinine Ratio 33.3 (10.0-20.0); Glucose 166 mg/dL (74-106)
[2024-03-10 08:47] LABS: Blood Urea Nitrogen 36 mg/dL (9-23)
[2024-03-10] MEDS: D5W/SOD CHL 0.45%/KCL 40MEQ 1,000 ML IV ONE (10:00)
[2024-03-10 11:00] LABS: Magnesium 2.2 mg/dL (1.6-2.6)
[2024-03-11] VITALS (37 sets, daily range): BP systolic 117–133; BP diastolic 73–83; PULSE 81–111; RESP 10–32; TEMP 99.1–99.9; O2SAT 94–100
[2024-03-11 05:53] LABS: Chloride 103 mmol/L (98-107); Potassium 4.3 mmol/L (3.5-5.1); Sodium 136 mmol/L (136-145)
[2024-03-11 05:54] LABS: Anion Gap 11 (5-15); Calcium 9.6 mg/dL (8.7-10.4); Carbon Dioxide 22 mmol/L (20-30)
[2024-03-11 05:59] LABS: BUN/Creatinine Ratio 25.9 (10.0-20.0); Blood Urea Nitrogen 28 mg/dL (9-23); Glucose 109 mg/dL (74-106)
[2024-03-11 06:00] LABS: Magnesium 2.4 mg/dL (1.6-2.6)
[2024-03-11] MEDS: D5W/SOD CHLO 0.9% 1,000 ML IV SCH (10:48)
[2024-03-11] MEDS: ACETAMINOPHEN 650 MG RECT SUPP PR PRN (11:35)
[2024-03-11] MEDS ORDERED: TPN PER PHARMACY 0 ML IV SCH (16:15)
[2024-03-11] MEDS: AMINO ACID INFUSION IN D5W 1,000 ML IV NR (20:27)
[2024-03-12] VITALS (37 sets, daily range): BP systolic 110–128; BP diastolic 53–79; PULSE 84–106; RESP 12–32; TEMP 99.1–100.2; O2SAT 84–100
[2024-03-12 06:00] LABS: Alanine Aminotransferase 13 U/L (7-40); Alkaline Phosphatase 93 U/L (46-116); Anion Gap 8 (5-15); Aspartate Aminotransferase 20 U/L (13-40); BUN/Creatinine Ratio 40.2 (10.0-20.0); Blood Urea Nitrogen 33 mg/dL (9-23); Calcium 8.6 mg/dL (8.7-10.4); Carbon Dioxide 22 mmol/L (20-30); Chloride 109 mmol/L (98-107); Glucose 192 mg/dL (74-106); Potassium 3.2 mmol/L (3.5-5.1); Sodium 139 mmol/L (136-145)
[2024-03-12 06:01] LABS: Bilirubin, Total 0.5 mg/dL (0.2-1.0); Total Protein 7.2 g/dL (5.7-8.2)
[2024-03-12 06:29] LABS: Phosphorus 2.5 mg/dL (2.4-5.1); Triglycerides 119 mg/dL (< 150)
[2024-03-12 08:02] LABS: Basophils # (auto) 0.1 10 ^3/uL (0-0.2); Eosinophils # (auto) 0 10 ^3/uL (0-0.8); Eosinophils % (auto) 0.3 % (0.0-7.0); Hemoglobin 10.1 g/dL (13.5-17.5); Lymphocytes # (auto) 1.3 10 ^3/uL (0.4-5.4)
[2024-03-12 08:03] LABS: Basophils % (auto) 0.5 % (0.0-2.0); Hematocrit 31.5 % (41.0-53.0); Lymphocytes % (auto) 12.7 % (10.0-50.0); Mean Corpuscular Hemoglobin 27.6 pg (28.0-32.0); Mean Corpuscular Hgb Conc. 32.1 g/dL (32.0-36.0); Monocytes # (auto) 0.7 10 ^3/uL (0-1.3); Monocytes % (auto) 6.5 % (0.0-12.0); Neutrophils # (auto) 8.3 10 ^3/uL (1.6-8.6); Nucleated Red Blood Cells % 0.2 %; Red Blood Cells 3.67 10^6/uL (4.5-5.90); Red Cell Distribution Width 15.1 % (11.8-14.3); White Blood Cell 10.4 10^3/uL (4.4-10.8)
[2024-03-12] MEDS: D5W/SOD CHLO 0.9% 1,000 ML IV SCH (08:06)
[2024-03-12] MEDS: POTASSIUM CHL 20MEQ/100ML 100 ML IV SCH (08:06)
[2024-03-12] MEDS: FUROSEMIDE 40 MG/4 ML VIAL ONE (19:30)
[2024-03-12] MEDS: FUROSEMIDE 40 MG/4 ML VIAL IV ONE (20:14)
[2024-03-12] MEDS: TPN PER PHARMACY IV NR (20:36)
[2024-03-13] VITALS (85 sets, daily range): BP systolic 107–126; BP diastolic 67–82; PULSE 77–119; RESP 16–37; TEMP 99.5–100.8; O2SAT 0–100
[2024-03-13 05:07] LABS: Alanine Aminotransferase 12 U/L (7-40); Albumin 3.1 g/dL (3.2-4.8); Alkaline Phosphatase 95 U/L (46-116); Anion Gap 8 (5-15); Aspartate Aminotransferase 16 U/L (13-40); BUN/Creatinine Ratio 32.2 (10.0-20.0); Bilirubin, Total 0.5 mg/dL (0.2-1.0); Blood Urea Nitrogen 29 mg/dL (9-23); Calcium 8.8 mg/dL (8.7-10.4); Carbon Dioxide 23 mmol/L (20-30); Chloride 108 mmol/L (98-107); Glucose 228 mg/dL (74-106); Magnesium 1.9 mg/dL (1.6-2.6); Phosphorus 2.1 mg/dL (2.4-5.1); Potassium 3.4 mmol/L (3.5-5.1); Sodium 139 mmol/L (136-145); Total Protein 7.3 g/dL (5.7-8.2)
[2024-03-13] MEDS: POTASSIUM CHL 20MEQ/100ML 100 ML IV SCH (10:02)
[2024-03-13] MEDS: SODIUM PHOSP 40 MEQ in D5W 5% 250 ML IV ONE (13:28)
[2024-03-13] MEDS ORDERED: POTASSIUM PHOSPHATE IV NR (20:00)
[2024-03-13] MEDS ORDERED: [UNRECOGNIZED DRUG - OTHER] IV NR (20:00)
[2024-03-13] MEDS ORDERED: POTASSIUM ACETATE IV NR (20:00)
[2024-03-13] MEDS ORDERED: FAT EMULSION IV NR (20:00)
[2024-03-14] VITALS (91 sets, daily range): BP systolic 86–166; BP diastolic 56–90; PULSE 80–124; RESP 15–37; TEMP 98.6–100.8; O2SAT 73–100
[2024-03-14 06:14] LABS: Alanine Aminotransferase 10 U/L (7-40); Albumin 2.8 g/dL (3.2-4.8); Alkaline Phosphatase 93 U/L (46-116); Anion Gap 8 (5-15); Aspartate Aminotransferase 15 U/L (13-40); BUN/Creatinine Ratio 31.8 (10.0-20.0); Bilirubin, Total 0.7 mg/dL (0.2-1.0); Blood Urea Nitrogen 28 mg/dL (9-23); Calcium 7.6 mg/dL (8.7-10.4); Carbon Dioxide 21 mmol/L (20-30); Chloride 111 mmol/L (98-107); Magnesium 1.6 mg/dL (1.6-2.6); Phosphorus 2.9 mg/dL (2.4-5.1); Potassium 3.3 mmol/L (3.5-5.1); Sodium 140 mmol/L (136-145); Total Protein 6.6 g/dL (5.7-8.2)
[2024-03-14 06:59] LABS: Glucose 596 mg/dL (74-106)
[2024-03-14 08:26] LABS: Erythrocyte Sedimentation Rate 113 mm/hr (0-20)
[2024-03-14 08:56] LABS: Basophils # (auto) 0.1 10 ^3/uL (0-0.2); Hemoglobin 8.2 g/dL (13.5-17.5); Lymphocytes # (auto) 1.2 10 ^3/uL (0.4-5.4); Monocytes # (auto) 0.6 10 ^3/uL (0-1.3)
[2024-03-14 08:57] LABS: Basophils % (auto) 0.6 % (0.0-2.0); Eosinophils # (auto) 0 10 ^3/uL (0-0.8); Eosinophils % (auto) 0.5 % (0.0-7.0); Hematocrit 25.1 % (41.0-53.0); Lymphocytes % (auto) 12.8 % (10.0-50.0); Mean Corpuscular Hemoglobin 28.1 pg (28.0-32.0); Mean Corpuscular Hgb Conc. 32.6 g/dL (32.0-36.0); Mean Corpuscular Volume 86.2 fL (80.0-100.0); Monocytes % (auto) 7.1 % (0.0-12.0); Neutrophils # (auto) 7.2 10 ^3/uL (1.6-8.6); Red Blood Cells 2.91 10^6/uL (4.5-5.90); Red Cell Distribution Width 14.8 % (11.8-14.3); White Blood Cell 9.1 10^3/uL (4.4-10.8)
[2024-03-14 09:15] LABS: INR 1.34 (0.9-1.15); Partial Thromboplastin Time 26.3 SEC (24.5-34.5); Prothrombin Time 13.9 sec (9.3-11.8)
[2024-03-14] MEDS: POTASSIUM CHL 20MEQ/100ML 100 ML IV SCH (10:26)
[2024-03-14 10:50] LABS: Platelet Estimate Decreased
[2024-03-14] MEDS: ETOMIDATE (2MG/ML) 20ML VIAL IV ONE ×2 (12:04→14:36)
[2024-03-14] MEDS: SUCCINYLCHOLINE CHLORIDE 20 MG/ML 10ML VIAL IV ONE ×2 (12:04→14:37)
[2024-03-14] MEDS: fentaNYL Drip 2500mCg/250mlNS 250 ML IV ONE (12:38)
[2024-03-14] MEDS: MIDAZOLAM DRIP 50 mg/50mL 50 ML IV ONE (12:38)
[2024-03-14] MEDS: fentaNYL Drip 2500mCg/250mlNS 250 ML IV SCH (12:50)
[2024-03-14] MEDS: MIDAZOLAM DRIP 50 mg/50mL 50 ML IV SCH (12:50)
[2024-03-14] MEDS: NOREPINEPHRINE 8 MG/250ML KIT 250 ML IV SCH (14:30)
[2024-03-14] MEDS: NOREPINEPHRINE 8 MG/250ML KIT 250 ML IV ONE (14:48)
[2024-03-14 14:58] LABS: Base Excess -2.3 mmol/L (-2.0-2.0)
[2024-03-14] MEDS: FUROSEMIDE 40 MG/4 ML VIAL IV ONE (16:09)
[2024-03-14] MEDS: HEPARIN SODIUM (PORCINE) 5000 UNITS/ML 1ML VIAL SC SCH (16:15)
[2024-03-14] MEDS: POTASSIUM CHL 20MEQ/100ML 100 ML IV ONE (16:15)
[2024-03-14] MEDS: FREE WATER GT SCH (17:37)
[2024-03-14] MEDS: ACETYLCYSTEINE 20%(200MG/ML) SOL 4ML NEB SCH (18:29)
[2024-03-14] MEDS ORDERED: TPN PER PHARMACY IV NR (20:00)
[2024-03-15] VITALS (104 sets, daily range): BP systolic 85–124; BP diastolic 49–85; PULSE 85–119; RESP 9–38; TEMP 98.2–100.2; O2SAT 93–100
[2024-03-15] MEDS: Jevity 1.2 Cal/Fiber 1 Liter GT SCH (01:13)
[2024-03-15 05:12] LABS: Basophils # (auto) 0.1 10 ^3/uL (0-0.2); Eosinophils # (auto) 0.2 10 ^3/uL (0-0.8); Hemoglobin 9.6 g/dL (13.5-17.5)
[2024-03-15 05:13] LABS: Chloride 108 mmol/L (98-107); Potassium 3.8 mmol/L (3.5-5.1); Sodium 139 mmol/L (136-145)
[2024-03-15 05:14] LABS: Anion Gap 8 (5-15); Carbon Dioxide 23 mmol/L (20-30)
[2024-03-15 05:15] LABS: Basophils % (auto) 0.6 % (0.0-2.0); Calcium 8.9 mg/dL (8.7-10.4); Eosinophils % (auto) 1.3 % (0.0-7.0); Hematocrit 29.8 % (41.0-53.0); Lymphocytes # (auto) 1.5 10 ^3/uL (0.4-5.4); Lymphocytes % (auto) 9.1 % (10.0-50.0); Mean Corpuscular Hemoglobin 27.7 pg (28.0-32.0); Mean Corpuscular Hgb Conc. 32.2 g/dL (32.0-36.0); Mean Corpuscular Volume 86.1 fL (80.0-100.0); Monocytes % (auto) 6.2 % (0.0-12.0); Neutrophils # (auto) 13.2 10 ^3/uL (1.6-8.6); Neutrophils % (auto) 82.8 % (37.0-80.0); Red Blood Cells 3.46 10^6/uL (4.5-5.90)
[2024-03-15 05:20] LABS: BUN/Creatinine Ratio 32.2 (10.0-20.0); Blood Urea Nitrogen 28 mg/dL (9-23)
[2024-03-15 05:44] LABS: Glucose 198 mg/dL (74-106)
[2024-03-15 06:31] LABS: Base Excess -2.8 mmol/L (-2.0-2.0)
[2024-03-15] MEDS ORDERED: METOCLOPRAMIDE 10 mg/10ml ORAL soln GT PRN (09:30)
[2024-03-15] MEDS: FUROSEMIDE 40 MG/4 ML VIAL IV SCH (09:58)
[2024-03-15] MEDS: ASPirin 81 mg TAB PO SCH (10:08)
[2024-03-15] MEDS: IPRATROPIUM BROM 0.5 MG/2.5ML INH SOL NEB SCH (11:32)
[2024-03-15] MEDS: ALBUTEROL SULF 2.5 MG/0.5ML(0.5%) NEB SOLN HHN SCH (11:32)
[2024-03-15] MEDS: PIPERACILLIN-TAZOB 3.375GM 100 ML IV SCH (13:16)
[2024-03-16] VITALS (92 sets, daily range): BP systolic 95–140; BP diastolic 54–90; PULSE 73–95; RESP 9–22; TEMP 98.1–100.2; O2SAT 95–100
[2024-03-16 05:13] LABS: Basophils # (auto) 0.1 10 ^3/uL (0-0.2); Basophils % (auto) 0.8 % (0.0-2.0); Eosinophils # (auto) 0.5 10 ^3/uL (0-0.8); Eosinophils % (auto) 3.8 % (0.0-7.0); Hematocrit 32.1 % (41.0-53.0); Hemoglobin 10.2 g/dL (13.5-17.5); Lymphocytes # (auto) 2.2 10 ^3/uL (0.4-5.4); Lymphocytes % (auto) 15.3 % (10.0-50.0); Mean Corpuscular Hemoglobin 27.9 pg (28.0-32.0); Mean Corpuscular Hgb Conc. 31.7 g/dL (32.0-36.0); Mean Corpuscular Volume 87.8 fL (80.0-100.0); Monocytes % (auto) 7.1 % (0.0-12.0); Neutrophils # (auto) 10.4 10 ^3/uL (1.6-8.6); Nucleated Red Blood Cells % 0.2 %; Red Blood Cells 3.65 10^6/uL (4.5-5.90); Red Cell Distribution Width 15.4 % (11.8-14.3); White Blood Cell 14.3 10^3/uL (4.4-10.8)
[2024-03-16 05:22] LABS: Chloride 105 mmol/L (98-107); Potassium 4.7 mmol/L (3.5-5.1); Sodium 136 mmol/L (136-145)
[2024-03-16 05:23] LABS: Anion Gap 8 (5-15); Calcium 8.7 mg/dL (8.5-10.1); Carbon Dioxide 23 mmol/L (20-30)
[2024-03-16 05:28] LABS: BUN/Creatinine Ratio 23.3 (10.0-20.0); Blood Urea Nitrogen 21 mg/dL (9-23); Glucose 168 mg/dL (74-106)
[2024-03-16] MEDS: IPRATROPIUM BROM 0.5 MG/2.5ML INH SOL NEB SCH ×2 (11:24→18:17)
[2024-03-16] MEDS: FUROSEMIDE 20 MG TAB GT SCH (11:58)
[2024-03-16] MEDS ORDERED: ALBUTEROL SULF 2.5 MG/0.5ML(0.5%) NEB SOLN HHN SCH (14:00)
[2024-03-16] MEDS: METOCLOPRAMIDE 10 mg/10ml ORAL soln GT SCH (14:03)
[2024-03-16] MEDS: ALBUTEROL SULF 2.5 MG/0.5ML(0.5%) NEB SOLN NEB SCH (18:16)
[2024-03-17] VITALS (109 sets, daily range): BP systolic 89–140; BP diastolic 59–86; PULSE 70–93; RESP 9–23; TEMP 97.7–99.1; O2SAT 99–100
[2024-03-17 08:00] LABS: Chloride 105 mmol/L (98-107); Potassium 3.9 mmol/L (3.5-5.1); Sodium 137 mmol/L (136-145)
[2024-03-17 08:01] LABS: Anion Gap 5 (5-15); Carbon Dioxide 27 mmol/L (20-30)
[2024-03-17 08:02] LABS: Calcium 8.6 mg/dL (8.5-10.1)
[2024-03-17 08:06] LABS: Glucose 208 mg/dL (74-106)
[2024-03-17 08:07] LABS: BUN/Creatinine Ratio 18.1 (10.0-20.0); Blood Urea Nitrogen 13 mg/dL (9-23)
[2024-03-17 08:15] LABS: Base Excess -1.5 mmol/L (-2.0-2.0)
[2024-03-17 09:04] LABS: Basophils # (auto) 0.1 10 ^3/uL (0-0.2); Basophils % (auto) 0.9 % (0.0-2.0); Eosinophils # (auto) 0.3 10 ^3/uL (0-0.8); Eosinophils % (auto) 4.1 % (0.0-7.0); Hematocrit 27.6 % (41.0-53.0); Lymphocytes % (auto) 12.3 % (10.0-50.0); Mean Corpuscular Hemoglobin 27.8 pg (28.0-32.0); Mean Corpuscular Hgb Conc. 32.7 g/dL (32.0-36.0); Monocytes # (auto) 0.5 10 ^3/uL (0-1.3); Monocytes % (auto) 6.5 % (0.0-12.0); Neutrophils # (auto) 6.4 10 ^3/uL (1.6-8.6); Neutrophils % (auto) 76.2 % (37.0-80.0); Red Blood Cells 3.25 10^6/uL (4.5-5.90); Red Cell Distribution Width 15.1 % (11.8-14.3); White Blood Cell 8.3 10^3/uL (4.4-10.8)
[2024-03-17 10:37] LABS: Magnesium 1.8 mg/dL (1.6-2.6)
[2024-03-18] VITALS (113 sets, daily range): BP systolic 81–115; BP diastolic 52–71; PULSE 78–94; RESP 12–25; TEMP 96.8–98.8; O2SAT 93–100
[2024-03-18 06:44] LABS: Base Excess 0.4 mmol/L (-2.0-2.0)
[2024-03-18 20:46] LABS: COVID19 ANTIGEN SOFIA FIA NEGATIVE (NEGATIVE)
== END 2024-03-18 23:46 | DRG 710 ==
LOC: ER 22:23 → EDBD 22:23 → TELE 02-24 04:11 → ICU WEST 02-24 22:50 → DOU IN ICU 03-11 00:26 → ICU CENTRL 03-14 18:39
PROVIDERS: ADMIT Nurse Practitioner Acute Care; ATTEND Nurse Practitioner Acute Care
PROC: 0BH17EZ Insertion of Endotracheal Airway into Trachea, Via Natural or Artificial Opening (ICD-10-PCS; 2024-02-24)
PROC: 5A1955Z Respiratory Ventilation, Greater than 96 Consecutive Hours (ICD-10-PCS; 2024-02-24)
PROC: 02HV33Z Insertion of Infusion Device into Superior Vena Cava, Percutaneous Approach (ICD-10-PCS; 2024-02-24)
PROC: B548ZZA Ultrasonography of Superior Vena Cava, Guidance (ICD-10-PCS; 2024-02-24)
PROC: 0Y6D0Z3 Detachment at Left Upper Leg, Low, Open Approach (ICD-10-PCS; principal; 2024-02-25 07:49)
PROC: B24BZZ4 Ultrasonography of Heart with Aorta, Transesophageal (ICD-10-PCS; 2024-02-26)
PROC: 0BH17EZ Insertion of Endotracheal Airway into Trachea, Via Natural or Artificial Opening (ICD-10-PCS; 2024-03-02)
PROC: 5A09357 Assistance with Respiratory Ventilation, Less than 24 Consecutive Hours, Continuous Positive Airway Pressure (ICD-10-PCS; 2024-03-02)
PROC: 5A1955Z Respiratory Ventilation, Greater than 96 Consecutive Hours (ICD-10-PCS; 2024-03-14)
PROC: 0BH17EZ Insertion of Endotracheal Airway into Trachea, Via Natural or Artificial Opening (ICD-10-PCS; 2024-03-14)
PROC: 02HV33Z Insertion of Infusion Device into Superior Vena Cava, Percutaneous Approach (ICD-10-PCS; 2024-03-14)
PROC: 5A09357 Assistance with Respiratory Ventilation, Less than 24 Consecutive Hours, Continuous Positive Airway Pressure (ICD-10-PCS; 2024-03-14)
DX: A41.9 Sepsis, unspecified organism (principal); B37.1 Pulmonary candidiasis; I63.9 Cerebral infarction, unspecified; J96.01 Acute respiratory failure with hypoxia; M72.6 Necrotizing fasciitis; A48.0 Gas gangrene; G92.8 Other toxic encephalopathy; E11.10 Type 2 diabetes mellitus with ketoacidosis without coma; D68.9 Coagulation defect, unspecified; N17.0 Acute kidney failure with tubular necrosis; Z20.822 Contact with and (suspected) exposure to COVID-19; E11.52 Type 2 diabetes mellitus with diabetic peripheral angiopathy with gangrene; F17.200 Nicotine dependence, unspecified, uncomplicated; D64.9 Anemia, unspecified; E11.22 Type 2 diabetes mellitus with diabetic chronic kidney disease; I51.7 Cardiomegaly; J98.11 Atelectasis; N18.31 Chronic kidney disease, stage 3a; L03.116 Cellulitis of left lower limb; R65.21 Severe sepsis with septic shock; E87.3 Alkalosis; Q21.12 Patent foramen ovale; Z83.3 Family history of diabetes mellitus; Z86.73 Personal history of transient ischemic attack (TIA), and cerebral infarction without residual deficits; Z79.899 Other long term (current) drug therapy; Z79.82 Long term (current) use of aspirin
CPT/HCPCS: 31500; 36415; 36569; 36600; 70450; 70551; 71045; 73590; 73630; 73700; 80048; 80053; 80061; 80202; 80307; 80320; 81001; 82010; 82306; 82550; 82565; 82805; 82962; 83036; 83605; 83735; 83880; 84100; 84478; 84484; 85007; 85025; 85027; 85610; 85652; 85730; 86850; 86900; 86901; 87040; 87070; 87077; 87081; 87086; 87186; 87205; 87426; 92610; 93005; 93306; 93312; 93886; 94002; 94003; 94640; 94660; 94668; 95819; 97163; 99291; C9113; G0378; J0330; J1450; J1815; J1956; J2001; J2185; J2250; J2405; J2543; J3430; J3480; J3490; J7060